=== PATIENT | male | born 1960 | race Caucasian/White ===

== ENCOUNTER 2017-12-07 12:05 | Day surgery (SDC) | payer OTHER | END 2017-12-07 17:22 | disposition home or self-care (01) | LOC: GIL 12:05 | DX: Z12.11 Encounter for screening for malignant neoplasm of colon (principal); K64.8 Other hemorrhoids; K29.70 Gastritis, unspecified, without bleeding; K26.9 Duodenal ulcer, unspecified as acute or chronic, without hemorrhage or perforation; I10 Essential (primary) hypertension | CPT/HCPCS: 43239; 82962; 88305; 88312 ==